=== PATIENT | female | born 1940 | race Caucasian/White ===

== ENCOUNTER 2018-02-08 15:15 | Outpatient (CLI) | payer MEDICARE | END 2018-02-08 15:16 | disposition home or self-care (01) | LOC: BICMRI 15:15 | PROVIDERS: ATTEND Anesthesiology Pain Medicine | DX: M47.26 Other spondylosis with radiculopathy, lumbar region (principal); M43.16 Spondylolisthesis, lumbar region | CPT/HCPCS: 72100; 72148 ==

== ENCOUNTER 2018-03-03 13:38 | Outpatient (CLI) | payer MEDICARE ==
--- NOTE | 2018-03-04 01:43 | HP ---
DATE OF SERVICE: 03/03/2018 HISTORY OF PRESENT ILLNESS: Ms. Yris Campos is a very pleasant 77-year-old accompanied by her hu michelleand who presents to the wound center for evaluation of an ulceration of the dorsum of the left fore foot. The patient states that the corner of a frame hit the dorsum of her left forefoot. On 018, the patient states that at this time she was seen in Urgent Care and sutures placed to repair a laceration over the dorsum of the left forefoot. The patient states that the sutures were removed on 02/18/2018 and again on 02/21/2018, at the time of the patient's visit with Dr. Rincon on 02/21/2018. The patient was referred to the Wound Center for further evaluation and treatment. The patient sta kamaljit she is not taking any p.o. antibiotics currently, she states that she was treated with 2 injectio ns of antibiotics. She states that the first injection was on the same day of her injury and the sec ond at the time of her visit with a Nurse Practitioner on 02/18/2018. The patient states she was juliana rosetta on a course of p.o. antibiotics. At the time of her injury, which she took for a total of 10 day s. She states that this course of p.o. antibiotics was discontinued after 10 days because of difficu lty in tolerating the p.o. antibiotics. She states that she was placed on a second course of p.o. an tibiotics for 5 days when the first course was discontinued. The patient's states that he bustos s been cleansing the ulceration over the dorsum of the left forefoot with a dilute Hibiclens. He sta kamaljit he has been then applying Betadine to the periwound and dressing the ulceration with a non-stick dressing followed by Devon. PAST MEDICAL HISTORY: 1. Hypertension. 2. Gout. 3. Melanoma. 4. Degenerative joint disease. 5. Lumbar disk disease. PAST SURGICAL HISTORY: 1. Excision of basal cell carcinoma of left nose and scalp. 2. Surgery for melanoma of back. 3. Hysterectomy. 4. Appendectomy. 5. Bilateral knee replacement. 6. Surgery for vaginal vault prolapse, cystocele, and rectocele including laparoscopic repair of sharif dder injury. MEDICATIONS: 1. Allopurinol. 2. Zetia. 3. Simvastatin. 4. Nabumetone. 5. Metformin. 6. Lisinopril. 7. Tramadol. ALLERGIES: SULFA. SOCIAL HISTORY: Negative for tobacco or EtOH use. FAMILY HISTORY: Significant for coronary artery disease. The patient states that her father was kuldeep gnosed with coronary artery disease. PHYSICAL EXAMINATION: VITAL SIGNS: Temperature 98.2, pulse 82, respirations 18, blood pressure 149/81. GENERAL: A 77-year-old female sitting on chair in examination room in no acute distress. HEENT: Normocephalic, atraumatic. NECK: No nuchal rigidity. CHEST: Clear to auscultation. CARDIAC: Regular rate and rhythm. ABDOMEN: Soft. EXTREMITIES: An ulceration over the dorsum of the left forefoot is present which measures approximat haley 2.5 x 1.8 cm. Granulation tissue is present within the wound margins. Necrotic and nonviable ti ssue present within the wound margins was debrided with an excisional full-thickness debridement with the use of scissors and a curette. No purulent drainage is associated with the wound. No celluliti s of the left foot is appreciated. No maceration of the skin of the periwound is noted. A dorsalis pedis pulse is easily palpable on the left. No significant edema of the left foot is present on exam today. Numerous varicosities are present over the left lower leg. ASSESSMENT AND PLAN: 1. Ulceration of dorsum of left forefoot as described above. Dressing changes of Medihoney gauze an d Coban will be initiated today. These dressing changes are to be performed on a daily basis after c leansing and irrigation. The patient's will be assisting Ms. Campos with her dressing duran es. No antibiotics will be prescribed today based upon the appearance of the wound. I will see Ms. Campos again in two weeks. The patient and her understand and are in agreement with the pre ceding treatment plan. 2. Hypertension. 3. Gout. 4. Melanoma. 5. Degenerative joint disease. 6. Lumbar disk disease.
== END 2018-03-03 13:39 | disposition home or self-care (01) ==
LOC: WCC 13:38
PROVIDERS: ATTEND Family Medicine
DX: L97.529 Non-pressure chronic ulcer of other part of left foot with unspecified severity (principal); C43.9 Malignant melanoma of skin, unspecified; I10 Essential (primary) hypertension; M10.9 Gout, unspecified; M19.90 Unspecified osteoarthritis, unspecified site; M51.9 Unspecified thoracic, thoracolumbar and lumbosacral intervertebral disc disorder

== ENCOUNTER 2018-03-21 14:00 | Outpatient (CLI) | payer MEDICARE ==
[~2018-03-21 14:00] MED LIST: Lidocaine 2% Jelly 5 ML TUBE ONE; Sodium Chloride 0.9% 15 ML NEB ONE
--- NOTE | 2018-03-21 15:06 | PRG ---
DATE OF SERVICE: 03/21/2018 SUBJECTIVE: Ms. Yris Campos is a very pleasant 77-year-old accompanied by her who presen ts to the Wound Center for evaluation of an ulceration of the dorsum of the left forefoot. The patie nt previously stated that the corner of a frame hit the dorsum of her left forefoot on 02/09/2018. T he patient stated that at this time she was seen in Urgent Care and sutures placed to repair a lacera tion over the dorsum of the left forefoot. The patient stated that the sutures were removed on 02/18 and again on 02/21/2018. At the time of the patient's visit with Dr. Rincon on 02/21/2018, the patient was referred to the Wound Center for further evaluation and treatment. The patient stated at the time of her initial presentation to the Wound Center that she was not taking any p.o. antibiotic s. She stated that she had been treated with 2 injections of antibiotics. She stated that the first injection was on the same day of her injury and the second at the time of her visit with nurse thiago powers on 02/18/2018. The patient stated that she was placed on a course of p.o. antibiotics at the time of her injury, which she took for a total of 10 days. She stated that this course of p.o. anti biotics were discontinued after 10 days because of difficulty in tolerating the p.o. antibiotics. Sh archana stated that she was placed on a second course of p.o. antibiotics for 5 days when the first course was discontinued. At the time of the patient's initial visit to the Wound Center, the patient's husb and stated that he had been cleansing the ulceration over the dorsum of the left forefoot with dilute d Hibiclens. He stated that he had then been applying Betadine to the periwound and dressing the ulc eration with a nonstick dressing followed by Coban. After being seen in the Wound Center, the patien dwayne was placed on dressing changes of Medihoney, 4x4s and Coban. The patient's has been assist ing Ms. Campos with her dressing changes. OBJECTIVE: VITAL SIGNS: Temperature 98.2, pulse 103, respirations 19, blood pressure 152/84. EXTREMITIES: The ulceration over the dorsum of the left forefoot measures approximately 1.8 x 1.0 cm . The dimensions of the wound at the time of the patient's last visit were approximately 2.5 x 1.8 c m. Granulation tissue is present within the wound margins. Necrotic and nonviable tissue present wi thin the wound margins was debrided with an excisional full-thickness debridement with the use of a c urette. No purulent drainage is associated with the wound. No cellulitis of the left foot is apprec iated. No maceration of the skin of the periwound is noted. A dorsalis pedis pulse is easily palpab le on the left. No significant edema of the left foot is present on exam today. Numerous varicositi es are present over the left lower leg. ASSESSMENT AND PLAN: 1. Ulceration of dorsum of left forefoot as described above. Dressing changes of Medihoney, 4x4s an d Coban will be continued on a daily basis after cleansing and irrigation. The patient's ginger fonseca continue to assist Ms. Campos with her dressing changes. I will see Ms. Campos again in two week s. 2. Hypertension. 3. Gout. 4. Melanoma. 5. Degenerative joint disease. 6. Lumbar disk disease.
== END 2018-03-21 14:01 | disposition home or self-care (01) ==
LOC: WCC 14:00
PROVIDERS: ATTEND Family Medicine
DX: L97.529 Non-pressure chronic ulcer of other part of left foot with unspecified severity (principal); I10 Essential (primary) hypertension; M10.9 Gout, unspecified; C43.9 Malignant melanoma of skin, unspecified; M19.90 Unspecified osteoarthritis, unspecified site; M51.9 Unspecified thoracic, thoracolumbar and lumbosacral intervertebral disc disorder
CPT/HCPCS: A4218

== ENCOUNTER 2018-04-04 13:57 | Outpatient (CLI) | payer MEDICARE ==
--- NOTE | 2018-04-04 17:54 | PRG ---
DATE OF SERVICE: 04/04/2018 HISTORY: Ms. Yris Campos is a very pleasant 77-year-old accompanied by her , who presents to the Wound Center for evaluation of an ulceration of the dorsum of the left forefoot. The patient pr eviously stated that the corner of the frame hit the dorsum of her left forefoot on 02/09/2018. The patient stated that at this time she was seen in Urgent Care and sutures placed to repair a laceratio n over the dorsum of the left forefoot. The patient stated that the sutures were removed on 02/19/20 and again on 02/21/2018. At the time of the patient's visit with Dr. Rincon on 02/21/2018. The yaniv frederick was referred to the Wound Center for further evaluation and treatment. The patient stated at t he time of her initial presentation to the Wound Center that she was not taking any p.o. antibiotics. She stated that she has been treated with 2 injections of antibiotics. She stated that the first i njection was on the same day of her injury and the second at the time of her visit with her Nurse Tanya telles on 02/18/2018. The patient stated that she was placed on a course of p.o. antibiotics at t he time of her injury, which she took for a total of 10 days. She stated that this course of p.o. an tibiotics was discontinued after 10 days because of difficulty in tolerating the p.o. antibiotics. S he stated that she was placed on a second course of p.o. antibiotics for 5 days when the first course was discontinued. At the time of the patient's initial visit to the Wound Center, the patient's hus band stated that he had been cleansing the ulceration over the dorsum of the left foot with dilute Hi biclens. She stated that he had then been applying Betadine to the periwound and dressing the ulcera tion with a nonstick dressing followed by Coban. After being seen in the Wound Center, the patient w as placed on dressing changes of Medihoney, 4 x 4s, and Coban. The patient's has been assist ing Ms. Campos with her dressing changes. Presently, the patient is receiving dressing changes of Natalie mariano followed by bordered gauze. PHYSICAL EXAMINATION: VITAL SIGNS: Temperature 98.3, pulse 96, respirations 18, and blood pressure 134/88. EXTREMITIES: The ulceration over the dorsum of the left forefoot measures approximately 1.1 x 0.4 cm . The dimensions of the wound at the time of the patient's last visit were approximately 1.8 x 1.0 c m. Granulation tissue is present within the wound margins. Necrotic and nonviable tissue present wi thin the wound margins was debrided with an excisional full-thickness debridement. No purulent drain age is associated with the wound. No cellulitis of the left foot is appreciated. No maceration of t he skin of the periwound is noted. A dorsalis pedis pulse is easily palpable on the left. No signif icant edema of the left foot is present on exam today. Numerous varicosities are present over the le ft foot and lower leg. ASSESSMENT AND PLAN: 1. Ulceration of dorsum of left forefoot as described above. Dressing changes of Medihoney and bord ered gauze will be continued on a daily basis after cleansing and irrigation. The wound has almost h ealed completely and Ms. Campos will be discharged from clinic with followup on a p.r.n. basis. The patient's has been instructed to continue the dressing changes until the wound has healed co mpletely. 2. Hypertension. 3. Gout. 4. Melanoma. 5. Degenerative joint disease. 6. Lumbar disk disease.
[2018-04-04] MEDS ORDERED: Sodium Chloride 0.9% 15 ML NEB ONE (22:01)
== END 2018-04-04 13:58 | disposition home or self-care (01) ==
LOC: WCC 13:57
PROVIDERS: ATTEND Family Medicine
DX: L97.529 Non-pressure chronic ulcer of other part of left foot with unspecified severity (principal); M10.9 Gout, unspecified; I10 Essential (primary) hypertension; C43.9 Malignant melanoma of skin, unspecified; M19.90 Unspecified osteoarthritis, unspecified site; M51.86 Other intervertebral disc disorders, lumbar region
CPT/HCPCS: 11042; A4218

== ENCOUNTER 2018-05-02 15:00 | Inpatient (IN) | payer MEDICARE ==
[2018-05-02 14:20] VITALS: BMI 29.9
[2018-06-01] MEDS ORDERED: CEFAZOLIN/Water 2 GM/20 ML SYRINGE ONE (07:13)
[2018-06-01] MEDS ORDERED: Sodium Chloride 0.9% 10 ML ONE (08:54)
[2018-06-01] MEDS ORDERED: Fentanyl 100 MCG/2 ML VIAL ONE ×3 (09:10→11:21)
[2018-06-01] MEDS ORDERED: Glycopyrrolate 0.2 MG/ML 5 ML SYRINGE ONE (10:09)
[2018-06-01] MEDS ORDERED: PHENYLEPHRINE-NS 100 MCG/ML 10 ML SYRINGE ONE (10:09)
[2018-06-01] MEDS ORDERED: PROPOFOL 200 MG/20 ML VIAL ONE (10:09)
[2018-06-01] MEDS ORDERED: Ondansetron HCl/PF 4 MG/2 ML Vial ONE (10:09)
[2018-06-01] MEDS ORDERED: Esmolol 100 MG/10 ML VIAL ONE (10:09)
--- NOTE | 2018-06-01 12:11 | OP ---
DATE OF PROCEDURE: 06/01/2018 SURGEON: Ajay Walker M.D. SECONDARY EDUCATION PROFESSOR: Nettie Castillo PROCEDURE: L2 through L5 laminectomy, posterolateral arthrodesis L4-5, demineralized bone matrix, lo charito morselized autograft, pedicle screw instrumentation L4-5. PROCEDURE IN DETAIL: The patient was brought to the operating room and intubated. She was rolled in prone position on gel-filled chest rolls. Incision made exposing L2 through L5 and our level was co nfirmed by x-ray. We performed complete L5, complete L4, complete L3 and inferior L2 laminectomies, completely decompressing the neural elements. We next placed pedicle screws at L4 and L5 bilaterally using lateral fluoroscopic guidance. Cesar was secured between the screws, connected by nuts which we re final tightened. The wound was then extensively irrigated, immaculate hemostasis was secured. A combination of demineralized bone matrix, local morselized autograft was laid over the posterolateral surfaces for the purpose of arthrodesis. Vancomycin powder was applied and the wound was closed in anatomic layers.
[2018-06-01] MEDS ORDERED: traMADol HCl 50 MG TAB PO PRN ×3 (12:45→12:48)
[2018-06-01] MEDS ORDERED: diphenhydrAMINE 25 MG CAP PO PRN ×2 (12:48→18:21)
[2018-06-01] MEDS ORDERED: HYDROcodone/Acetaminophen 10/325 mg Tablet PO PRN ×2 (12:48)
[2018-06-01] MEDS ORDERED: Promethazine HCl 12.5 MG SUPP PR PRN (12:48)
[2018-06-01] MEDS ORDERED: Promethazine 25 MG TAB PO PRN (12:48)
[2018-06-01] MEDS ORDERED: Milk Of Magnesia 30 ML UDCUP PO PRN (12:48)
[2018-06-01] MEDS ORDERED: Promethazine HCl 25 MG/ML VIAL IM PRN ×2 (12:48→18:21)
[2018-06-01] MEDS ORDERED: Mag-Al 1200 mg/1200 mg/30 ML UDCUP PO PRN (12:48)
[2018-06-01] MEDS ORDERED: diphenhydrAMINE 50 MG/ML VIAL IVP PRN ×2 (12:48→18:21)
[2018-06-01] MEDS ORDERED: Ondansetron HCl/PF 4 MG/2 ML Vial IVP PRN ×2 (12:51→18:21)
[2018-06-01] MEDS: Sodium Chloride 0.9% 1,000 ML IV SCH ×2 (13:37→22:33)
[2018-06-01] MEDS ORDERED: CEFAZOLIN/Water 2 GM/20 ML SYRINGE SLOW IVP SCH (14:00)
[2018-06-01] MEDS: metFORMIN 500 MG TAB PO SCH (16:25)
[2018-06-01] MEDS: tiZANidine HCl 4 MG TAB PO PRN (16:25)
[2018-06-01] MEDS: CEFAZOLIN/Water 2 GM/20 ML SYRINGE SLOW IVP SCH (17:24)
[2018-06-01] MEDS ORDERED: diphenhydrAMINE 50 MG/ML VIAL IM PRN (18:21)
[2018-06-01] MEDS ORDERED: Naloxone HCl 0.4 mg/ml Vial IV PRN (18:21)
[2018-06-01] MEDS ORDERED: Zolpidem Tartrate 5 MG TAB PO PRN (18:21)
[2018-06-01] MEDS ORDERED: fentaNYL Citrate/PF 2,000 MCG in Sodium Chloride 0.9% 60 ML IV PRN (18:21)
[2018-06-01] MEDS ORDERED: Communication Order-Pharmacy FS SCH (18:30)
[2018-06-01] MEDS: Simvastatin 40 MG TAB PO SCH (21:00)
[2018-06-01] MEDS: Ezetimibe 10 MG TAB PO SCH (21:00)
[2018-06-01] MEDS: Lisinopril/Hydrochlorothiazide 20 mg/12.5 mg Tablet PO SCH (21:00)
[2018-06-02] MEDS: CEFAZOLIN/Water 2 GM/20 ML SYRINGE SLOW IVP SCH ×3 (01:43→17:54)
[2018-06-02] MEDS: Ketorolac Tromethamine 30 MG/ML VIAL IVP PRN ×2 (05:36→21:02)
[2018-06-02] MEDS: tiZANidine HCl 4 MG TAB PO PRN (05:37)
--- NOTE | 2018-06-02 08:26 | PRG ---
DATE OF SERVICE: 06/02/2018 The patient is a 77-year-old female status post L2-L5 laminectomy and L4-L5 fusion for lumbar stenosis and spondylolisthesis. She is postoperative day #1. Yesterday she had significant pain control issues, particularly over the surgical site and required WORSHIP LEADER placement. She reports she is doing much better today and she is sitting up comfortably in the chair during my exam. She has no radicular symptoms, numbness, tingling or weakness. She has ambulated short distances to the bathroom and is voiding appropriately. She is tolerating a regular diet. We discussed options of possible need for inpatient rehabilitation versus home with home health and the patient is leaning towards going home with home health. Overnight her SIENNA drain had 170 mL out, so we will leave her SIENNA drain and continue to monitor this output. We will continue to mobilize with the assistance of PT, OT and continue pain control with hopes of weaning from the WORSHIP LEADER and transitioned to oral pain medications. Please reach out to Neurosurgery for additional questions or concerns. Addendum- Nursing call me with concern for low blood pressure. I have advised that they hold all narcotic pain medications and administer NS bolus. Pt will be treated with 1gm PO tylenol Q6h prn pain. MTDD
[2018-06-02] MEDS ORDERED: Naloxone HCl 0.4 mg/ml Vial ONE (09:06)
[2018-06-02] MEDS: metFORMIN 500 MG TAB PO SCH ×2 (09:22→17:54)
[2018-06-02] MEDS: Allopurinol 300 MG TAB PO SCH (09:23)
[2018-06-02] MEDS: Nabumetone 500 MG TAB PO SCH (09:23)
[2018-06-02] MEDS: Lisinopril/Hydrochlorothiazide 20 mg/12.5 mg Tablet PO SCH ×2 (09:23→20:59)
[2018-06-02] MEDS: Loratadine/Pseudoephedrine 10/240 mg Tablet PO SCH (09:23)
[2018-06-02 09:25] LABS: #Eosinphils 0.1 thou/uL (0.0-0.7); #Monocytes 0.7 thou/uL (0.11-0.59); #Neutrophils 5.5 thou/uL (1.40-6.50); %Basophils 0.4 % (0.0-1.0); %Eosinophils 1.1 % (0.0-10.0); %Monocytes 8.7 % (0.0-10.0); %Neutrophils 65.9 % (42.0-75.0); Hemoglobin 11.3 g/dL (12.0-16.0); Mean Corpuscular Hemoglobin 30.3 pg (27.0-31.0); Mean Corpuscular Volume 94.8 fL (78.0-98.0); Mean Platelet Volume 7.9 fL (7.4-10.4); Platelet Count 193 thou/uL (130-400); RBC Distribution Width 14.6 % (11.5-14.5); Red Blood Cell (RBC) Count 3.72 mill/uL (4.20-5.40); White Blood Cell (WBC) Count 8.3 thou/uL (4.8-10.8)
--- NOTE | 2018-06-02 09:41 | PDOC.PN ---
- Subjective Encounter Start Date: 06/02/18 Encounter Start Time: 09:15 Pt seen while responding to a code heather called. Pt started on Fentanyl RESOURCE PROTECTION SPECIALIST last evrening, vital stable all night, got evening meds including verapmil ER and did fine. todya at 0900, BP noted to be 70s systolic, pt sleepy. Jo-Ann romero called, given narcan and woke up. BP 130/70 inTrendellenberg. Bolus already started and RESOURCE PROTECTION SPECIALIST discontinued Pt awakae and alert, no F/c, no N/V/D/c, no Cp or SOB. Back feels better overall at present all systems reviewed and neg x as above - Objective MAR Reviewed: Yes Vital Signs & Weight: Vital Signs (12 hours) Temp Pulse Resp BP Pulse Ox 06/02/18 09:30 89/55 L 06/02/18 09:23 77 06/02/18 08:50 98.3 F 77 20 75/43 L 91 L 06/02/18 04:09 99.7 F H 97 18 136/64 95 06/02/18 00:15 99.8 F H 93 18 124/56 L 95 06/01/18 22:35 95 18 126/59 L 95 Weight Weight 180 lb I&O: 06/01/18 06/02/18 06/03/18 06:59 06:59 06:59 Intake Total 775 Output Total 540 30 Balance 235 -30 Result Diagrams: 06/02/18 09:17 Additional Labs: CBC, BMP, Mag ordered this AM Phys Exam - Physical Examination Constitutional: NAD HEENT: PERRLA, moist MMs, sclera anicteric, oral pharynx no lesions Neck: no nodes, no JVD, supple, full ROM Respiratory: no wheezing, no rales, no rhonchi, clear to auscultation bilateral Cardiovascular: RRR, no significant murmur, no rub Gastrointestinal: soft, non-tender, no distention, positive bowel sounds Musculoskeletal: no edema Neurological: non-focal, normal sensation, moves all 4 limbs Lymphatic: no nodes Psychiatric: normal affect, A&O x 3 Skin: no rash, normal turgor, cap refill <2 seconds Dx/Plan (1) Hypotension Status: Acute Qualifiers: Hypotension type: hypotension due to drug Qualified Code(s): I95.2 - Hypotension due to drugs Comment: likely fentanyl, verapamil and 2g hemnoglobin drop. 1L bolus, stop RESOURCE PROTECTION SPECIALIST , hold BP meds, transfer to tele (2) HTN (hypertension) Code(s): I10 - ESSENTIAL (PRIMARY) HYPERTENSION Status: Chronic Qualifiers: Hypertension type: essential hypertension Qualified Code(s): I10 - Essential (primary) hypertension (3) HLD (hyperlipidemia) Code(s): E78.5 - HYPERLIPIDEMIA, UNSPECIFIED Status: Chronic Qualifiers: Hyperlipidemia type: unspecified Qualified Code(s): E78.5 - Hyperlipidemia , unspecified (4) DJD (degenerative joint disease) Code(s): M19.90 - UNSPECIFIED OSTEOARTHRITIS, UNSPECIFIED SITE Status: Chronic Qualifiers: Osteoarthritis location: multiple joints Osteoarthritis type: primary Qualified Code(s): M15.0 - Primary generalized (osteo)arthritis (5) Gout Code(s): M10.9 - GOUT, UNSPECIFIED Status: Chronic Qualifiers: Gout site: unspecified site Gout etiology: unspecified cause Chronicity: chronic Presence of tophus: without tophus Qualified Code(s): M1A.9XX0 - Chronic gout, unspecified, without tophus (tophi) - Plan cont current plan of care, plan discussed w/ family, continue antibiotics, PT/OT , out of bed/ambulate * .
[2018-06-02 09:52] LABS: Anion Gap 16 mmol/L (10-20); BUN (Urea Nitrogen) 18 mg/dL (9.8-20.1); Calc. Creatinine Clearance 47 mL/min (70-130); Calcium 8.8 mg/dL (7.8-10.44); Carbon Dioxide 22 mmol/L (23-31); Chloride 103 mmol/L (98-107); Estimated GFR-MDRD 41; Glucose 247 mg/dL (83-110); Magnesium 1.6 mg/dL (1.6-2.6); Potassium 4.2 mmol/L (3.5-5.1); Sodium 137 mmol/L (136-145)
--- NOTE | 2018-06-02 10:03 | CON ---
DATE OF CONSULTATION: 06/01/2018 PRIMARY CARE PHYSICIAN: Dr. Paco Boyle TIME OF SERVICE: 1500 REQUESTING PHYSICIAN: Dr. Ajay Walker REASON FOR CONSULTATION: Medical management post L2-L5 laminectomy and fusion. HISTORY OF PRESENT ILLNESS: Ms. Campos is a 77-year-old female with a history of hypertension, hype rlipidemia, seasonal allergies, gout, and melanoma who is being admitted postop day 0 status post L2- L5 laminectomy and fusion by Dr. Walker. We have been consulted for medical management. She did well with no noted intraoperative complicatio ns. No fevers or chills, nausea, vomiting or constipation. Pain is not as well controlled now as it was initially Medicine reviewed that have been ordered already. She has no other current complaints. PAST MEDICAL HISTORY: 1. Hypertension. 2. Hyperlipidemia. 3. Gout without acute exacerbation. 4. History of melanoma. 5. Degenerative joint disease. 6. Diabetes. PAST SURGICAL HISTORY: 1. Melanoma removal. 2. Bilateral total knee replacements. 3. Bilateral intraocular lenses. 4. Pessary. 5. Partial thyroidectomy. 6. Appendectomy. 7. Hysterectomy remotely. 8. History of cystotomy repair and anterior, posterior vaginal wall repair and uterosacral vault myke pension. HOME MEDICATIONS: 1. Allopurinol 300 mg p.o. q.a.m. 2. Vytorin 10/40 one p.o. at bedtime. 3. Lisinopril/HCTZ 20/12.5 one p.o. b.i.d. 4. Loratadine. 5. Pseudoephedrine 10/240 daily p.r.n. 6. Metformin 500 mg p.o. b.i.d. 7. Relafen 750 mg p.o. daily p.r.n. 8. Tramadol 50 mg p.o. q.i.d. 9. Verapamil extended release 240 mg p.o. at bedtime. FAMILY HISTORY: Negative for clotting or immune dysfunction. Some hypertension and diabetes. SOCIAL HISTORY: Negative habits x3. She is . REVIEW OF SYSTEMS: All systems reviewed and negative. PHYSICAL EXAMINATION: VITAL SIGNS: Temperature current 98.4, pulse 88, blood pressure 145/65, respiratory rate 20, satting 94% on room air. GENERAL: She is awake, she is alert, she is oriented x3. Well-developed, well-nourished, elderly wh ite female, appears age appropriate. She appears to be in acute distress. HEENT: Normocephalic, atraumatic. Pupils equal, reactive bilaterally. Mucous membranes are moist. She had bilateral pseudophakia. NECK: Supple, without lymphadenopathy, JVD, or thyromegaly. She has no carotid upstrokes, no bruits . LUNGS: Clear, no wheeze, no rales or rhonchi. Good air movement. No chest excursion and no prolong ed expiratory phase. ABDOMEN: Soft, nontender, nondistended, no organomegaly. Good bowel sounds. EXTREMITIES: No signs of clubbing, no edema. SCDs are in place. She has got a 4-5/5 strength in al l 4 extremities. SKIN: Warm, moist and well-perfused. She has no rashes or lesions. MUSCULOSKELETAL: Normal to inspection. Large joints appear normal. There is no evidence of inflamm ation or palpable effusion. BACK: Her lumbar incision has postoperative dressing in place, was not removed. NEUROLOGIC: Cranial nerves II through XII are grossly intact. She has no focal neurologic deficits. She has a normal speech pattern. LABORATORY DATA: CBC preop showed a CBC with a white count of 8.0, hemoglobin 13.3, hematocrit of 40 .6 and platelet count of 186,000. Preoperative chemistries shows sodium 139, potassium 4.5, chloride 103, bicarb 21, BUN 38, creatinine 1.18, glucose of 161. Baseline creatinine is somewhere around 1- 1.1. ASSESSMENT AND PLAN: 1. Hypertension, essential. 2. Hyperlipidemia. 3. Degenerative joint disease. 4. History of gout without acute exacerbation. 5. Diabetes mellitus type 2, non-insulin dependent. 6. Status post L2-L5 lumbar laminectomy and fusion. Continue home medications, q.i.d., a.c. and at bedtime Accu-Cheks, diabetic diet and continue home me dications. Pain control per the primary service. We will follow along with you. Thank you very much for this consult.
[2018-06-02] MEDS ORDERED: Sodium Chloride 0.9% 1,000 ML IV SCH (10:15)
[2018-06-02] MEDS: traMADol HCl 50 MG TAB PO PRN ×2 (12:57→17:53)
[2018-06-02] MEDS: Sodium Chloride 0.9% 1,000 ML IV SCH (17:27)
[2018-06-02] MEDS: Ezetimibe 10 MG TAB PO SCH (20:58)
[2018-06-02] MEDS: Simvastatin 40 MG TAB PO SCH (20:59)
[2018-06-03] MEDS: CEFAZOLIN/Water 2 GM/20 ML SYRINGE SLOW IVP SCH (03:14)
[2018-06-03] MEDS: Ketorolac Tromethamine 30 MG/ML VIAL IVP PRN ×2 (03:21→17:58)
[2018-06-03] MEDS: Sodium Chloride 0.9% 1,000 ML IV SCH ×2 (04:44→16:16)
[2018-06-03 06:15] LABS: #Eosinphils 0.3 thou/uL (0.0-0.7); #Lymphocytes 1.4 thou/uL (1.20-3.40); #Monocytes 0.6 thou/uL (0.11-0.59); #Neutrophils 4.9 thou/uL (1.40-6.50); %Basophils 0.1 % (0.0-1.0); %Eosinophils 3.5 % (0.0-10.0); %Lymphocytes 19.4 % (21.0-51.0); %Monocytes 8.5 % (0.0-10.0); %Neutrophils 68.4 % (42.0-75.0); Hemoglobin 10.1 g/dL (12.0-16.0); Mean Corpuscular Hemoglobin 29.9 pg (27.0-31.0); Mean Corpuscular Volume 93.6 fL (78.0-98.0); Mean Platelet Volume 7.9 fL (7.4-10.4); Platelet Count 163 thou/uL (130-400); RBC Distribution Width 14.4 % (11.5-14.5); Red Blood Cell (RBC) Count 3.38 mill/uL (4.20-5.40); White Blood Cell (WBC) Count 7.2 thou/uL (4.8-10.8)
[2018-06-03 06:28] LABS: Anion Gap 12 mmol/L (10-20); BUN (Urea Nitrogen) 15 mg/dL (9.8-20.1); Calc. Creatinine Clearance 68 mL/min (70-130); Calcium 8.8 mg/dL (7.8-10.44); Carbon Dioxide 28 mmol/L (23-31); Chloride 103 mmol/L (98-107); Estimated GFR-MDRD 63; Glucose 175 mg/dL (83-110); Magnesium 1.6 mg/dL (1.6-2.6); Potassium 3.8 mmol/L (3.5-5.1); Sodium 139 mmol/L (136-145)
[2018-06-03] MEDS: Nabumetone 500 MG TAB PO SCH (08:48)
[2018-06-03] MEDS: Allopurinol 300 MG TAB PO SCH (08:49)
[2018-06-03] MEDS: metFORMIN 500 MG TAB PO SCH ×2 (08:49→17:06)
[2018-06-03] MEDS: traMADol HCl 50 MG TAB PO PRN ×3 (08:49→17:06)
[2018-06-03] MEDS: Lisinopril/Hydrochlorothiazide 20 mg/12.5 mg Tablet PO SCH ×2 (08:49→20:15)
[2018-06-03] MEDS: Loratadine/Pseudoephedrine 10/240 mg Tablet PO SCH (08:50)
--- NOTE | 2018-06-03 09:12 | PRG ---
DATE OF SERVICE: 06/03/2018 ATTENDING PHYSICIAN: Dr. Ajay Walker The patient is a 77-year-old female postoperative day #2 from L2-L5 laminectomy and L4-L5 fusion for lumbar stenosis and spondylolisthesis. Initially, she had significant pain control issues and requir ed MECHANICAL SUPERVISOR pump; however, yesterday she developed hypotensive episode likely secondary to this medication . MECHANICAL SUPERVISOR was discontinued, she was treated with a bolus, and transitioned to the telemetry floor for mo nitoring. Since that time, she reports she is doing much better and is no longer having dizziness. Her pain has been well controlled with p.o. tramadol and her blood pressure is now normotensive. Unf ortunately, secondary to hypotensive episode she was not able to mobilize much. She has been tolerat ing a regular diet and voiding appropriately. Her SIENNA drain had 75 mL out overnight and we will plan to remove today. Additionally, we will plan to continue to mobilize the patient this afternoon and I anticipate that she can be discharged home tomorrow with home health care. I discussed with case kg pradhan to arrange home health care and provide the patient with prescriptions for tramadol, Keflex, and Zanaflex for her discharge home. Please reach out to Neurosurgery for additional questions or c oncerns.
[2018-06-03] MEDS: Cephalexin 250 MG CAP PO SCH ×4 (09:39→20:14)
--- NOTE | 2018-06-03 11:57 | DIS ---
PRIMARY CARE PHYSICIAN: Dr. Paco Boyle DATE OF ADMISSION: 06/01/2018 DATE OF DISCHARGE: 06/03/2018 DISCHARGE DIAGNOSES: 1. Lumbar degenerative disease, status post lumbar laminectomy and fusion. 2. Medicine induced hypotension. 3. Essential hypertension. 4. Hyperlipidemia. 5. Diabetes mellitus type 2. 6. Gout. CONSULTATIONS: The patient was initially admitted by Neurosurgery. We were consulted for medical ma nagement. PROCEDURES: The patient underwent lumbar laminectomy and fusion L2-L5 prior to admission, please see operative note. HISTORY AND PHYSICAL: Ms. Campos is a 77-year-old female admitted postop from lumbar laminectomy an d fusion. We were consulted for medical management. Overnight 06/01/2018 to 06/02/2018, she did well. She had no problems. She was started on a fentany l TRANSFER TABLE OPERATOR for pain control. In the morning she developed low blood pressure right at 9:00 a.m. She did receive a bolus of fentanyl, had received her tizanidine, and had a 2 gram drop in hemoglobin. She w as given 1 liter bolus, transferred to telemetry and monitored. Her blood pressure normalized and re mained stable for the next 24 hours. Today, her pain is controlled. Labs are stable and she is stable for discharge outpatient followup. PHYSICAL EXAMINATION: The patient was seen and examined on the day of discharge. SIENNA drains have bee n removed. Discharge disposition was discussed face to face with the patient at the bedside. FOLLOWUP APPOINTMENTS: 1. Primary care physician within a week. 2. Dr. Walker in 2-3 weeks per his clinic. DISCHARGE CONDITION: Stable. DISPOSITION: Discharged to home with home health care, physical therapy and occupational therapy. DISCHARGE MEDICATIONS: (New prescriptions): 1. Keflex 500 mg p.o. q.i.d. for 10 days. 2. Tizanidine 4 mg p.o. q.6h. prescription left by Dr. Walker's team. MEDICATIONS TO CONTINUE: 1. Verapamil 240 mg p.o. at bedtime. 2. Tramadol p.r.n. 3. Metformin 500 mg p.o. b.i.d. with meals. 4. Relafen 750 mg p.o. daily. 5. Loratadine/pseudoephedrine 10 1 tab daily p.r.n. 6. Lisinopril/HCTZ 20/12.5 one p.o. b.i.d. 7. Vytorin 10/40 one p.o. at bedtime. 8. Allopurinol 300 mg p.o. q.a.m. DISCHARGE ACTIVITY: Per orthopedic limits. DISCHARGE DIET: Heart healthy diabetic diet recommended.
[2018-06-03] MEDS: Ezetimibe 10 MG TAB PO SCH (20:14)
[2018-06-03] MEDS: Simvastatin 40 MG TAB PO SCH (20:15)
[2018-06-04] MEDS: Ketorolac Tromethamine 30 MG/ML VIAL IVP PRN ×2 (00:29→07:41)
[2018-06-04] MEDS: Cephalexin 250 MG CAP PO SCH ×2 (09:16→13:48)
[2018-06-04] MEDS: metFORMIN 500 MG TAB PO SCH (09:16)
[2018-06-04] MEDS: Lisinopril/Hydrochlorothiazide 20 mg/12.5 mg Tablet PO SCH (09:17)
[2018-06-04] MEDS: Nabumetone 500 MG TAB PO SCH (09:17)
[2018-06-04] MEDS: Allopurinol 300 MG TAB PO SCH (09:17)
[2018-06-04] MEDS: Loratadine/Pseudoephedrine 10/240 mg Tablet PO SCH (09:19)
[2018-06-04] MEDS: traMADol HCl 50 MG TAB PO PRN (09:26)
[2018-06-04] MEDS: Sodium Chloride 0.9% 1,000 ML IV SCH (09:28)
[2018-06-04 12:32] VITALS: BP 102/54; TEMP 99.4
--- NOTE | 2018-06-05 18:05 | PRG ---
DATE OF SERVICE: 06/04/2018 Montana Marion PA-C, dictating for Rj Fierro MD This is a postoperative followup. SUBJECTIVE: Ms. Campos is now postoperative day number 3, having undergone multilevel lumbar yury ctomies and lumbar fusion with Dr. Walker. She is doing much better in regard to pain control toda y. She has been up walking, eating and pain is controlled with oral medications. She has met criter ia for discharge and is ready at any time to go home. Case management has arranged home health for t he patient. Again, she meets criteria for discharge and can go home at any time today. Please call with any changes in the patient's neurologic status. Otherwise, she will follow up on an outpatient basis.
== END 2018-06-04 15:42 | disposition home health service (06) | DRG 983 ==
LOC: SURG A 06-01 06:29 → 3SE 06-01 12:49 → 2SW 06-02 09:45 → 2NO 06-02 20:42
PROVIDERS: ADMIT Neurological Surgery; ATTEND Neurological Surgery
PROC: 01NB3ZZ Release Lumbar Nerve, Percutaneous Approach (ICD-10-PCS; principal; 2018-06-01)
PROC: 0SG03AJ Fusion of Lumbar Vertebral Joint with Interbody Fusion Device, Posterior Approach, Anterior Column, Percutaneous Approach (ICD-10-PCS; 2018-06-01)
PROC: 0SB23ZZ Excision of Lumbar Vertebral Disc, Percutaneous Approach (ICD-10-PCS; 2018-06-01)
PROC: 0SH034Z Insertion of Internal Fixation Device into Lumbar Vertebral Joint, Percutaneous Approach (ICD-10-PCS; 2018-06-01)
DX: I95.2 Hypotension due to drugs (principal); M43.16 Spondylolisthesis, lumbar region; T40.4X5A Adverse effect of other synthetic narcotics, initial encounter; Y92.239 Unspecified place in hospital as the place of occurrence of the external cause; M48.061 Spinal stenosis, lumbar region without neurogenic claudication; M51.36 Other intervertebral disc degeneration, lumbar region; I10 Essential (primary) hypertension; E78.5 Hyperlipidemia, unspecified; E11.9 Type 2 diabetes mellitus without complications; M10.9 Gout, unspecified; I73.9 Peripheral vascular disease, unspecified
CPT/HCPCS: 36415; 76001; 80048; 83735; 85025; A4216; C1713; C1768; G8978-GP-CL; G8979-GP-CJ; G8987-GO-CJ; G8988-GO-CI; J1885; J2270; J2310; J2405; J2704; J3010; J3370; J3490; J7050

== ENCOUNTER 2018-06-16 15:38 | Outpatient (CLI) | payer MEDICARE ==
--- NOTE | 2018-06-16 17:59 | RAD ---
TWO VIEWS LUMBAR SPINE: HISTORY: Spondylolysis of the lumbar region. Lumbar spine surgery June 01. FINDINGS: Midline skin mansi noted. Five lumbar-type vertebral bodies. Adnexal defect at L3, L4, and L5. A dnexal defect at L3, L4, and L5. Graft material is noted in the posterior elements at L4 and L5. Th ere are bilateral transpedicular screws at L4-L5. No perihardware lucency. Mild to moderate loss of disk space at L4-L5. There is 8 mm of anterolisthesis of L4 upon L5. Vacuum disk phenomenon, end p late sclerosis, and osteophyte formation at L5-S1. IMPRESSION: Postsurgical changes and degenerative changes as above. POS: [facility]
== END 2018-06-16 15:39 | disposition home or self-care (01) ==
LOC: TBSIIMAG 15:38
PROVIDERS: ATTEND Neurological Surgery
DX: M47.816 Spondylosis without myelopathy or radiculopathy, lumbar region (principal); Z98.890 Other specified postprocedural states
CPT/HCPCS: 72100

== ENCOUNTER 2018-07-04 12:14 | Outpatient (CLI) | payer MEDICARE | END 2018-07-04 12:15 | disposition home or self-care (01) | LOC: BICMAMMO 12:14 | PROVIDERS: ATTEND Family Medicine | DX: Z12.31 Encounter for screening mammogram for malignant neoplasm of breast (principal); Z80.3 Family history of malignant neoplasm of breast | CPT/HCPCS: 77063; 77067 ==

== ENCOUNTER 2018-07-27 13:33 | Outpatient (CLI) | payer MEDICARE ==
--- NOTE | 2018-07-27 14:55 | RAD ---
TWO TO 3 VIEWS LUMBAR SPINE SERIES: INDICATION: Prior lumbar spine surgery, followup. COMPARISON: Reference is made to 06/16/2018 exam. FINDINGS: There is a grade I spondylolisthesis, grossly stable, involving the L4-5 level. Redemonstration of p osterior fusion with bilateral pedicle screws and bilateral vertical interconnecting rods at the L4-5 level. Stable prominent disk space narrowing at L5-S1. Alignment of lumbar spine is grossly stable including levoscoliosis of the lower lumbar spine. Rounded artifact likely from vaginal pessary is seen overlying the imaged lower pelvis. IMPRESSION: Stable postoperative lumbar spine with stable grade I spondylolisthesis at L4-5. POS: [facility]
== END 2018-07-27 13:34 | disposition home or self-care (01) ==
LOC: TBSIIMAG 13:33
PROVIDERS: ATTEND Neurological Surgery
DX: M54.5 Low back pain (principal); M43.16 Spondylolisthesis, lumbar region; Z98.1 Arthrodesis status
CPT/HCPCS: 72100

== ENCOUNTER 2019-07-05 11:20 | Outpatient (CLI) | payer MEDICARE ==
--- NOTE | 2019-07-05 13:13 | MMO ---
Bilateral MAMMO Bilat Screen [facility]. CLINICAL HISTORY: Patient is 78 years old and is seen for screening. The patient has the following family history of breast cancer: sister. VIEWS: The views performed were: bilateral craniocaudal with tomosynthesis and bilateral mediolateral oblique with tomosynthesis. FILMS COMPARED: The present examination has been compared to prior imaging studies performed at [facility] on 06/27/2015, 06/30/2016, 07/02/2017 and 07/04/2018. This study has been interpreted with the assistance of computer-aided detection. MAMMOGRAM FINDINGS: There are scattered fibroglandular densities. There are benign appearing and vascular calcifications seen in both breasts. There are no suspicious masses, suspicious calcifications, or new areas of architectural distortion. IMPRESSION: THERE IS NO MAMMOGRAPHIC EVIDENCE OF MALIGNANCY. A ROUTINE FOLLOW-UP MAMMOGRAM IN 1 YEAR IS RECOMMENDED. THE RESULTS OF THIS EXAM WERE SENT TO THE PATIENT. ACR BI-RADS Category 2 - Benign finding MAMMOGRAPHY NOTE: 1. A negative mammogram report should not delay a biopsy if a dominant of clinically suspicious mass is present. 2. Approximately 10% to 15% of breast cancers are not detected by mammography. 3. Adenosis and dense breasts may obscure an underlying neoplasm. Reported by: ESEQUIEL VANCE MD Electonically Signed: [id number]
== END 2019-07-05 11:21 | disposition home or self-care (01) ==
LOC: BICMAMMO 11:20
PROVIDERS: ATTEND Family Medicine
DX: Z12.31 Encounter for screening mammogram for malignant neoplasm of breast (principal); Z80.3 Family history of malignant neoplasm of breast
CPT/HCPCS: 77063; 77067

== ENCOUNTER 2020-07-08 11:29 | Outpatient (CLI) | payer MEDICARE ==
--- NOTE | 2020-07-08 13:49 | MMO ---
Bilateral MAMMO Bilat Screen [facility]. CLINICAL HISTORY: Patient is 79 years old and is seen for screening. The patient has the following family history of breast cancer: sister. The patient has no personal history of cancer. VIEWS: The views performed were: bilateral craniocaudal with tomosynthesis; bilateral mediolateral oblique with tomosynthesis; and left craniocaudal. FILMS COMPARED: The present examination has been compared to prior imaging studies performed at [facility] on 06/30/2016, 07/02/2017, 07/04/2018 and 07/05/2019. This study has been interpreted with the assistance of computer-aided detection. MAMMOGRAM FINDINGS: There are scattered fibroglandular densities. Benign calcifications are noted bilaterally. There are no suspicious masses, suspicious calcifications, or new areas of architectural distortion. IMPRESSION: THERE IS NO MAMMOGRAPHIC EVIDENCE OF MALIGNANCY. A ROUTINE FOLLOW-UP MAMMOGRAM IN 1 YEAR IS RECOMMENDED. THE RESULTS OF THIS EXAM WERE SENT TO THE PATIENT. ACR BI-RADS Category 2 - Benign finding MAMMOGRAPHY NOTE: 1. A negative mammogram report should not delay a biopsy if a dominant of clinically suspicious mass is present. 2. Approximately 10% to 15% of breast cancers are not detected by mammography. 3. Adenosis and dense breasts may obscure an underlying neoplasm. Reported by: BRETT IBANEZ MD Electonically Signed: [id number]
== END 2020-07-08 11:30 | disposition home or self-care (01) ==
LOC: BICMAMMO 11:29
PROVIDERS: ATTEND Family Medicine
DX: Z12.31 Encounter for screening mammogram for malignant neoplasm of breast (principal); Z80.3 Family history of malignant neoplasm of breast
CPT/HCPCS: 77063; 77067

== ENCOUNTER 2021-07-09 11:41 | Outpatient (CLI) | payer MEDICARE | END 2021-07-09 11:42 | disposition home or self-care (01) | LOC: BICMAMMO 11:41 | PROVIDERS: ATTEND Family Medicine | DX: Z12.31 Encounter for screening mammogram for malignant neoplasm of breast (principal); Z80.3 Family history of malignant neoplasm of breast | CPT/HCPCS: 77063; 77067 ==

== ENCOUNTER 2022-07-13 11:47 | Outpatient (CLI) | payer MEDICARE | END 2022-07-13 11:48 | disposition home or self-care (01) | LOC: BICMAMMO 11:47 | PROVIDERS: ATTEND Family Medicine | DX: Z12.31 Encounter for screening mammogram for malignant neoplasm of breast (principal); Z80.3 Family history of malignant neoplasm of breast | CPT/HCPCS: 77063; 77067 ==

== ENCOUNTER 2023-04-23 10:24 | Outpatient (CLI) | payer MEDICARE | END 2023-04-23 10:25 | disposition home or self-care (01) | LOC: BICMRI 10:24 | PROVIDERS: ATTEND Nurse Practitioner Family | DX: M54.6 Pain in thoracic spine (principal); M54.14 Radiculopathy, thoracic region | CPT/HCPCS: 72146 ==

== ENCOUNTER 2024-09-29 13:48 | Outpatient (CLI) | payer MEDICARE | END 2024-09-29 13:49 | disposition home or self-care (01) | LOC: BICMAMMO 13:48 | PROVIDERS: ATTEND Student in an Organized Health Care Education/Training Program | DX: Z12.31 Encounter for screening mammogram for malignant neoplasm of breast (principal); Z80.3 Family history of malignant neoplasm of breast | CPT/HCPCS: 77063; 77067 ==

== ENCOUNTER 2025-04-25 12:20 | Outpatient (CLI) | payer MEDICARE | END 2025-04-25 12:21 | disposition home or self-care (01) | LOC: MRI 12:20 | PROVIDERS: ATTEND Student in an Organized Health Care Education/Training Program | DX: H53.9 Unspecified visual disturbance (principal); R53.1 Weakness; M48.02 Spinal stenosis, cervical region; M47.812 Spondylosis without myelopathy or radiculopathy, cervical region; M50.30 Other cervical disc degeneration, unspecified cervical region; I67.82 Cerebral ischemia; R90.82 White matter disease, unspecified; I73.9 Peripheral vascular disease, unspecified; G31.9 Degenerative disease of nervous system, unspecified | CPT/HCPCS: 70551; 72156 ==